=== PATIENT | male | born 1995 | race Caucasian/White ===

== ENCOUNTER 2017-10-26 01:24 | Emergency (ER) | payer SELFPAY ==
[~2017-10-26] VITALS: Ht 177.8 cm; Wt 61.2 kg
[2017-10-26 02:40] VITALS: BP 141/81
[2017-10-26] MEDS ORDERED: CLINDAMYCIN HCL 150 MG CAPSULE. PO ONE (03:15)
[2017-10-26] MEDS ORDERED: cefTRIAXone IM 1 GM VIAL IM ONE (03:15)
[2017-10-26] MEDS ORDERED: CLIN300C8 PO (03:30)
[2017-10-26] MEDS ORDERED: CHLO118L2 TP (03:30)
--- NOTE | 2017-10-26 03:31 | PHYS DOC ---
Past Medical History Past Medical History: Asthma, Diabetes-Type I Additional Past Medical Histor: Diagnosed DM age 8; on insulin sq Past Surgical History: Other Additional Past Surgical Histo: WISDOM TEETH REMOVED APPROX. 6 YRS AGO Smoking: Cigarettes Alcohol Use: Heavy Additional Information: PT REPORTS HE CONSUMES 1 TO 1/2 PINT ETOH APPROXIMATELY EVERY OTHER DAY. Drug Use: None Adult General Chief Complaint Chief Complaint: SKIN PROBLEM HPI HPI Patient is a 22 year old male who presents with "sores" in his groin. He noticed the sores in his pubic area 4 days ago. He popped one yesterday. He states he has 3 now. No fever,no difficulty urinating, no testicular swelling. No redness to the groin area. No nausea or vomiting. His blood sugars have been running around 200 he's been adjusted accordingly with his insulin. Review of Systems Review of Systems Constitutional: Denies fever or chills Eyes: Denies change in visual acuity, redness, or eye pain HENT: Denies nasal congestion or sore throat Respiratory: Denies cough or shortness of breath GI: Denies abdominal pain, nausea, vomiting, bloody stools or diarrhea : Denies dysuria or hematuria. POS sores in groin. No penile discharge. Musculoskeletal: Denies back pain or joint pain Integument: Denies rash or skin lesions Neurologic: Denies headache, focal weakness or sensory changes All other systems were reviewed and found to be within normal limits, except as documented in this note. Current Medications Current Medications Current Medications Medications (Trade) Dose Ordered Sig/Cora Start Time Stop Time Status Last Admin Dose Admin Ceftriaxone Sodium (Rocephin Im) 1 gm 1X ONCE 10/26/17 03:15 10/26/17 03:16 DC Clindamycin HCl (Cleocin) 300 mg 1X ONCE 10/26/17 03:15 10/26/17 03:16 DC Allergies Allergies Allergies Coded Allergies Type Severity Reaction Last Updated Verified No Known Drug Allergies 10/26/17 No Physical Exam Physical Exam Constitutional: Well developed, well nourished, no acute distress, non-toxic appearance. HENT: Normocephalic, atraumatic, bilateral external ears normal, oropharynx moist, no oral exudates, nose normal. Eyes: PERRLA, EOMI, conjunctiva normal, no discharge. Neck: Normal range of motion, no tenderness, supple, no stridor. Cardiovascular:Heart rate regular rhythm, no murmur Lungs & Thorax: Bilateral breath sounds clear to auscultation Abdomen: Bowel sounds normal, soft, no tenderness, no masses, no pulsatile masses. : [employer] Specialist present. (3) small raised maculopapular lesions at base of hair follicles. No vesicles. No chancre. No penile drainage. No testicular pain or swelling. Skin: Warm, dry, no erythema, no rash. Back: No tenderness, no CVA tenderness. Extremities: No tenderness, no cyanosis, no clubbing, ROM intact, no edema. Neurologic: Alert and oriented X 3, normal motor function, normal sensory function, no focal deficits noted. Current Patient Data Vital Signs Vital Signs Date Time Temp Pulse Resp B/P (MAP) Pulse Ox O2 Delivery O2 Flow Rate FiO2 10/26/17 02:40 98.1 70 16 100 Room Air 98.1 Course & Med Decision Making Course & Med Decision Making Findings consistent with folliculitis. Due to his diabetes he needs aggressive treatment. No evidence of Yamile's gangrene and patient was given strict return and follow-up instructions regarding that. A prescription was written for Hibiclens scrub to use in the groin area only (warned NOT to get into eyes) . Dosed here with Rocephin IM and clindamycin po. Rx: clindamycin po. He needs close follow up. I have spoken with the patient and/or caregivers. I have explained the patient' s condition, diagnosis and treatment plan based on the information available to me at this time. I have answered the patient's and/or caregiver's questions and addressed any concerns. The patient and/or caregivers have as good an understanding of the patient's diagnosis, condition and treatment plan as can be expected at this point. The patient's condition is stable and appropriate for discharge from the emergency department. The patient will pursue further outpatient evaluation with the primary care physician or other designated or consulting physician as outlined in the discharge instructions. The patient and/or caregivers are agreeable to this plan of care and follow-up instructions have been explained in detail. The patient and/or caregivers have received these instructions in written format and have expressed an understanding of the discharge instructions. The patient and/or caregivers are aware that any significant change in condition or worsening of symptoms should prompt an immediate return to this or the closest emergency department or a call to 911. Fernando Disclaimer Fernando Disclaimer This electronic medical record was generated, in whole or in part, using a voice recognition dictation system. Departure Departure Impression: Primary Impression: Folliculitis Disposition: 01 HOME, SELF-CARE Condition: STABLE Patient Instructions: Folliculitis Additional Instructions: YOU WERE DOSED HERE WITH A SHOT OF ANTIBIOTICS AND YOUR FIRST DOSE OF ANTIBIOTIC PILLS. SCRUB THE AREA TWICE DAILY WITH THE HIBICLENS SCRUB (DO NOT GET INTO EYES). IF IT SPREADS OR WORSENS YOU NEED TO BE RECHECKED PAUL. MONITOR YOUR SUGARS; IF THEY CONTINUE TO RISE YOU NEED RE-EVALUATION. Scripts Chlorhexidine Gluconate (HIBICLENS) 118 Ml Liquid 118 ML TP BID Y for SORES, #118 LIQUID Prov: PHIL PABLO MD 10/26/17 Clindamycin Hcl (CLINDAMYCIN HCL) 300 Mg Capsule 1 CAP PO TID, #21 CAP Prov: PHIL PABLO MD 10/26/17 PHIL PABLO MD Oct 26, 2017 03:31
== END 2017-10-26 03:45 | disposition home or self-care (01) ==
LOC: ER 01:24
DX: L73.9 Follicular disorder, unspecified (principal); J45.909 Unspecified asthma, uncomplicated; E10.9 Type 1 diabetes mellitus without complications; F17.210 Nicotine dependence, cigarettes, uncomplicated; F10.20 Alcohol dependence, uncomplicated; Z79.4 Long term (current) use of insulin
CPT/HCPCS: 96372; 99283; J0696

== ENCOUNTER 2018-10-19 13:26 | Emergency (ER) | payer SELFPAY ==
[~2018-10-19] VITALS: Ht 175.3 cm; Wt 61.2 kg
[~2018-10-19 13:26] MED LIST: CHLO118L2 TP; CLIN300C8 PO
[2018-10-19 13:38] VITALS: BP 168/90
[2018-10-19] MEDS ORDERED: OFLO5DRO7 LEFT EAR (13:46)
[2018-10-19] MEDS ORDERED: AMOX500C PO (13:46)
--- NOTE | 2018-10-19 13:47 | PHYS DOC ---
Past Medical History Past Medical History: Asthma, Diabetes-Type I Additional Past Medical Histor: Diagnosed DM age 8; on insulin sq Past Surgical History: Other Additional Past Surgical Histo: WISDOM TEETH REMOVED APPROX. 6 YRS AGO Alcohol Use: Heavy Drug Use: None Adult General Chief Complaint Chief Complaint: EARACHE/EAR PAIN [facility] HPI Patient is a 22 year old male who presents with bleeding from his left ear. The patient states that he has had increasing ear pain over the past several days. He states that today he felt a pop and started having bloody drainage. He denies sore throat, fever or other illness. He states that he has had sinus pressure over the past few days. Review of Systems Review of Systems Constitutional: Denies fever or chills [] Eyes: Denies change in visual acuity, redness, or eye pain [] HENT: See history of present illness Respiratory: Denies cough or shortness of breath [] Cardiovascular: No additional information not addressed in HPI [] GI: Denies abdominal pain, nausea, vomiting, bloody stools or diarrhea [] : Denies dysuria or hematuria [] Musculoskeletal: Denies back pain or joint pain [] Integument: Denies rash or skin lesions [] Neurologic: Denies headache, focal weakness or sensory changes [] Endocrine: Denies polyuria or polydipsia [] All other systems were reviewed and found to be within normal limits, except as documented in this note. Allergies Allergies Allergies Coded Allergies Type Severity Reaction Last Updated Verified No Known Drug Allergies 10/26/17 No Physical Exam Physical Exam Constitutional: Well developed, well nourished, no acute distress, non-toxic appearance. [] HENT: Normocephalic, atraumatic, right tympanic membrane is normal, left tympanic membrane is erythematous with a rupture of the tympanic membrane noted , blood is noted in the canal, oropharynx moist, no oral exudates, nose normal. [] Eyes: PERRLA, EOMI, conjunctiva normal, no discharge. [] Neck: Normal range of motion, no tenderness, supple, no stridor. [] Cardiovascular:Heart rate regular rhythm, no murmur [] Lungs & Thorax: Bilateral breath sounds clear to auscultation [] Neurologic: Alert and oriented X 3, normal motor function, normal sensory function, no focal deficits noted. [] Psychologic: Affect normal, judgement normal, mood normal. [] Current Patient Data Vital Signs Vital Signs Date Time Temp Pulse Resp B/P (MAP) Pulse Ox O2 Delivery O2 Flow Rate FiO2 10/19/18 13:38 98.3 122 16 168/90 (116) 100 Room Air 98.3 EKG EKG [] Radiology/Procedures Radiology/Procedures [] Course & Med Decision Making Course & Med Decision Making Pertinent Labs and Imaging studies reviewed. (See chart for details) [] Dragon Disclaimer Dragon Disclaimer This electronic medical record was generated, in whole or in part, using a voice recognition dictation system. Departure Departure Impression: Primary Impression: Otitis media of left ear Additional Impression: Ruptured tympanic membrane Disposition: HOME, SELF-CARE Condition: STABLE Referrals: NO PCP (PCP) Patient Instructions: Otitis Media, Adult, Tympanic Membrane Perforation- [facility] Additional Instructions: Take medications as directed. Follow-up with your health care provider in 4 days for recheck. You will need close following to make sure the ear tympanic membrane heals properly. If worsening return to the emergency department. Scripts Ofloxacin (OFLOXACIN) 5 Ml Drops 5 DROP LEFT EAR BID for ruptured tympanic membrane, #10 ML Prov: RAJENDRA RAMOS APRN 10/19/18 Amoxicillin (AMOXICILLIN) 500 Mg Capsule 2 CAP PO BID for otitis media, #40 CAP Prov: RAJENDRA RAMOS APRN 10/19/18 Problem Qualifiers RAJENDRA RAMOS APRN Oct 19, 2018 13:47
== END 2018-10-19 13:55 | disposition home or self-care (01) ==
LOC: ER 13:26
DX: H66.012 Acute suppurative otitis media with spontaneous rupture of ear drum, left ear (principal); J45.909 Unspecified asthma, uncomplicated; E10.9 Type 1 diabetes mellitus without complications; F10.20 Alcohol dependence, uncomplicated; Y90.9 Presence of alcohol in blood, level not specified
CPT/HCPCS: 99283